=== PATIENT | male | born 1950 | race Caucasian/White ===

== ENCOUNTER → 2022-06-05 | Outpatient (CLI) | payer MEDICARE | LOC: COL.RAD 09:21 | DX: F17.201 Nicotine dependence, unspecified, in remission (principal) ==

== ENCOUNTER 2022-07-19 08:15 | Day surgery (SDC) | payer MEDICARE ==
[2022-07-19] VITALS (8 sets, daily range): BP systolic 92–118; BP diastolic 50–83; PULSE 55–64; TEMP 96.4–97.3
[~2022-07-19] VITALS: Ht 167.6 cm; Wt 57.6 kg
[2022-07-19] MEDS ORDERED: ASPIRIN 81M81 MG/TA2 PO (08:58)
[2022-07-19] MEDS ORDERED: NORVASC 10MG10 MG PO (08:58)
[2022-07-19] MEDS ORDERED: CALCIUM WITH D31 CTB PO (08:59)
[2022-07-19] MEDS ORDERED: LIPITOR 40MG TA40 MG PO (08:59)
[2022-07-19] MEDS ORDERED: SINEMET 25/101 UDTAB PO (09:00)
[2022-07-19] MEDS ORDERED: FARXIGA10 PO (09:01)
[2022-07-19] MEDS ORDERED: PRINIVIL5 MG PO (09:01)
[2022-07-19] MEDS ORDERED: PRIL40 PO (09:02)
[2022-07-19] MEDS ORDERED: MELATIN 3 MG-11 TAB PO (09:02)
[2022-07-19] MEDS ORDERED: SEROQUEL 2525 MG/TAB PO (09:03)
[2022-07-19] MEDS ORDERED: TOPROL XL100 MG PO (09:05)
--- NOTE | 2022-07-19 10:30 | NUR ---
RETURNS TO ROOM 4 PER CART. PATIENT AWAKE, FAMILIARIZED WITH SURROUNDINGS. AMBULATES FROM CART TO RECLINER WITH 2 ASSIST. PATIENT WITH SIGNIFICANT INVOLUNTARY MOVEMENT OF LEGS. PATIENT AND SIGNIFICANT OTHER REFERENCE HISTORY OF RESTLESS LEG SYNDROME. RESP UNLABORED, BUT DOES EXHIBIT HARSH, NON PRODUCTIVE COUGH. PATIENT AND SIGNIFICANT OTHER STATE THIS COUGH HAS BEEN PRESENT AT HOME, WORSE AT NIGHT. DENIES NAUSEA OR ABD PAIN.
--- NOTE | 2022-07-19 11:00 | NUR ---
PATIENT MORE ALERT. INVOLUNTARY MOVEMENT OF LOWER EXTREMITIES SIGNIFICANTLY LESS. PATIENT CONVERSES APPROPRIATELY WITH SIGNIFICANT OTHER. O2 OFF
--- NOTE | 2022-07-19 11:07 | NUR ---
DR. STERLING IN ROOM. VISITS WITH PATIENT'S SIGNIFICANT OTHER.
--- NOTE | 2022-07-19 11:15 | NUR ---
DENIES NAUSEA OR ABD PAIN. TOLERATES PO JUICE AND MUFFIN WITHOUT NAUSEA. DISCHARGE INSTRUCTIONS REVIEWED WITH PATIENT AND SIGNIFICANT OTHER. COPY OF INSTRUCTIONS AND EDUCATIONAL DIAGNOSIS PAMPHLETS PROVIDED.
--- NOTE | 2022-07-19 11:50 | NUR ---
IV SITE SALINE LOCKED. PATIENT DRESSES SELF. AMBULATES TO BATHROOM WITH STANDBY ASSIST. VOIDS. THEN BACK TO RECLINER IN ROOM. PATIENT COMPLAINS OF BEING VERY COLD. WARM BLANKETS PROVIDED.
--- NOTE | 2022-07-19 12:10 | NUR ---
PATIENT DRESSED, AWAITING DR. STERLING. AMBULATES IN [place] WITH SIGNIFICANT OTHER AT SIDE.
--- NOTE | 2022-07-19 12:14 | NUR ---
DR. STERLING IN TO VISIT WITH PATIENT AND SIGNIFICANT OTHER.
== END 2022-07-19 12:20 | disposition home or self-care (01) ==
LOC: SDCO 08:15
DX: Z12.11 Encounter for screening for malignant neoplasm of colon (principal); K57.30 Diverticulosis of large intestine without perforation or abscess without bleeding; I25.10 Atherosclerotic heart disease of native coronary artery without angina pectoris; I12.9 Hypertensive chronic kidney disease with stage 1 through stage 4 chronic kidney disease, or unspecified chronic kidney disease; N18.9 Chronic kidney disease, unspecified; Z95.5 Presence of coronary angioplasty implant and graft; Z87.891 Personal history of nicotine dependence; Z79.82 Long term (current) use of aspirin
CPT/HCPCS: J2704; J7030

== ENCOUNTER 2023-04-01 17:37 | Emergency (ER) | payer MEDICARE ==
[~2023-04-01] VITALS: Ht 165.1 cm; Wt 63.6 kg
[~2023-04-01 17:37] MED LIST: ASPIRIN 81M81 MG/TA2 PO; CALCIUM WITH D31 CTB PO; FARXIGA10 PO; LIPITOR 40MG TA40 MG PO; MELATIN 3 MG-11 TAB PO; NORVASC 10MG10 MG PO; PRIL40 PO; PRINIVIL5 MG PO; SEROQUEL 2525 MG/TAB PO; SINEMET 25/101 UDTAB PO; TOPROL XL100 MG PO
[2023-04-01 18:14] LABS: BASO # 0.1 K/mm3 (0.0-0.2); BASO % 0.4 % (0.0-2.0); EOS # 0.1 K/mm3 (0.0-0.7); EOS % 0.7 % (0.0-4.0); GRAN # 8.3 K/mm3 (1.4-6.5); HEMATOCRIT 43.6 % (42.0-52.0); HEMOGLOBIN 14.5 g/dl (13.5-18.0); LYMPH # 2.3 K/mm3 (1.2-3.4); LYMPH % 19.8 % (20.0-51.0); MEAN CELL VOLUME 92 fl (80.0-100.0); MEAN CORPUSCULAR HEMOGLOBIN 31 pg (27-31); MEAN CORPUSCULAR HGB CONC 33 g/dl (33.0-37.0); MEAN PLATELET VOLUME 8.9 fl (7.4-10.4); MONO # 0.7 K/mm3 (0.1-0.6); MONO % 6.4 % (1.7-9.3); PLATELET COUNT 548 K/mm3 (130-400); RED BLOOD COUNT 4.74 M/mm3 (4.20-5.60)
[2023-04-01 18:29] LABS: ALANINE AMINOTRANSFERASE 18 U/L (0-55); ALBUMIN 4.2 gm/dL (3.4-4.8); ALKALINE PHOSPHATASE 93 U/L (40-150); ANION GAP 15 mmol/L (7-16); AST,SGOT 21 U/L (5-34); BILIRUBIN,TOTAL 0.4 mg/dL (0.2-1.2); BLOOD UREA NITROGEN 23 mg/dL (8-26); CALCIUM 11.1 mg/dL (8.4-10.2); CARBON DIOXIDE 15 mmol/L (23-31); CHLORIDE 105 mmol/L (98-107); CREATININE, serum 1.93 mg/dL (0.72-1.25); GLUCOSE 102 mg/dL (70-99); SODIUM 135 mmol/L (136-145); TOTAL PROTEIN 8.4 gm/dL (6.2-8.1)
[2023-04-01 18:35] LABS: TROPONIN-I < 0.010 ng/mL (0.00-0.033)
[2023-04-01 21:10] VITALS: BP 110/94; PULSE 59; TEMP 97.3
== END 2023-04-01 21:10 | disposition home or self-care (01) ==
LOC: COL.ER 17:37
PROVIDERS: Physician Assistant
DX: I13.0 Hypertensive heart and chronic kidney disease with heart failure and stage 1 through stage 4 chronic kidney disease, or unspecified chronic kidney disease (principal); I50.9 Heart failure, unspecified; N18.32 Chronic kidney disease, stage 3b; Z87.891 Personal history of nicotine dependence; Z95.5 Presence of coronary angioplasty implant and graft; Z79.82 Long term (current) use of aspirin
CPT/HCPCS: Q9967